=== PATIENT | male | born 1955 | race Caucasian/White ===

== ENCOUNTER 2022-01-08 11:10 | Observation (INO) ==
[2022-01-08] MEDS ORDERED: ONDANSETRON INJ 2 MG/ML 2 ML VIAL IV STA (11:22)
[2022-01-08] MEDS ORDERED: SODIUM CHLORIDE 0.9% 1000ML 2,000 ML IV SCH (11:30)
--- NOTE | 2022-01-08 11:30 | Emergency Department Note ---
History of Present Illness General Chief complaint: Syncope Time Seen by Provider: 01/08/22 11:16 Source: patient and EMS History of Present Illness 66-[facility]-old [facility] speech and physical therapy today and had episodes of syncope. Reportedly he has been evaluated in the past for syncope [id number] in their notes they state that 2 days ago he had 4 syncopal episodes in which he closes his eyes and then his eyes rolled back. Patient denies headache slurred speech blurred vision currently patient states that he does feel nauseated. Patient denies chest pain abdominal pain; there are no other mitigating or alleviating factors. Patient recently had a CVA as well is being treated for back pain. Patient denies bloody stools denies diarrhea Past Med/Surg History Social History Smoking Status: Former smoker Tobacco Type: Cigarettes Feels Safe at Home: Yes Immunizations: Past medical history CVA, syncope, back problems; reviewed in the chart that was brought in by EMS by me Review of Systems A total of 10 systems reviewed and were otherwise negative Constitutional: no fever Ear, Nose, Mouth, Throat: no ear pain Cardiovascular: no chest pain Gastrointestinal: + nausea; no abdominal pain Neurologic: + falls and + syncope Physical Exam Vital Signs Vital Signs - 24 hr 01/08/22 11:28 Temperature 36.5 C Temperature Source Oral Pulse Rate 62 Pulse Rhythm Regular Respiratory Rate 20 Blood Pressure 149/84 H Blood Pressure Mean 105 Pulse Oximetry 97 Oxygen Delivery Method Room Air Sepsis Recent Fever Within 48 Hours No Sepsis New/Unexplained Change in Mental Status N/A Sepsis Action Taken by Nursing No Action Required VITAL SIGNS - Vital signs and nursing notes were reviewed. GENERAL -66-year-old male appearing his stated age who is in no acute distress. Communicates well with provider and answers questions appropriately. SKIN - Without rashes. HEAD - NC/AT. EYES - PERRL with EOMI bilaterally. Sclera anicteric. Palpebral conjunctiva pink and moist with no injection noted. EARS - No deformities of external structures noted on gross examination bilaterally. No pain elicited with palpation of the tragus bilaterally. External auditory canals without discharge or otorrhea. NOSE - Midline and without cyanosis. No epistaxis or purulent drainage noted. Septum midline without deviation or septal hematoma noted. MOUTH/OROPHARYNX - Without perioral cyanosis. Buccal mucosa pink and moist ; Tongue midline with equal elevation of palate bilaterally. No tonsillar hypertrophy, erythema, or exudates noted. NECK - Neck with FROM. Supple to palpation. No nuchal rigidity. LUNGS - Chest wall symmetric without accessory muscle use, intercostals retractions, or central cyanosis. Normal vesicular breath sounds CTA B/L. No wheezes, rales, or rhonchi appreciated. CARDIAC - RRR with S1/S2. No murmur, rubs, or gallops appreciated. ABDOMEN - Abdominal contour soft without pulsations or visible masses. BS normoactive all four quadrants. No tenderness, palpable masses, hepatosplenomegaly, or ascites noted. EXTREMITIES - No clubbing or peripheral cyanosis. No pretibial edema present. +5/5 strength noted in UE/LE bilaterally. NEUROLOGIC - Cranial nerves II through XII grossly intact. Sensory intact to light touch throughout. NIH 0; GCS 15 PSYCH - A&Ox3 and cooperates fully with examiner. Pt is very pleasant and int eracts well with examiner. Course Reevaluation(s) Reevaluation #1: Examination of the patient at 12:15 PM he is resting in no distress nonfocal neurologically no seizure activity no cardiac dysrhythmia noticed on monitor. The case was discussed with the hospitalist from [facility] for admission, Dr Romo Administered Medications Sodium Chloride (Nss 1000ml) 2,000 mls @ 999 mls/hr IV .Q2H1M NOEL Stop: 01/08/22 13:30 Last Admin: 01/08/22 12:02 Dose: 999 mls/hr Documented by: [id number] Discontinued Medications Ondansetron HCl (Ondansetron Inj 2 Mg/Ml 2 Ml Vial) 4 mg IV NOW STA Stop: 01/08/22 11:23 Last Admin: 01/08/22 12:02 Dose: 4 mg Documented by: [id number] Medical Decision Making Medical Records Attestation: I reviewed the patient's medical records. Home Medications Current Medication List: was personally reviewed by me Laboratory Data Attestation: I reviewed the patient's lab results. Result diagrams: 01/08/22 11:23 01/08/22 11:23 Lab Results 01/08/22 01/08/22 01/08/22 Range/Units 11:23 11:23 11:23 WBC 9.21 (4.8-10.8) K/uL RBC 4.02 L (4.7-6.1) M/uL Hgb 13.4 L (14.0-18.0) g/dL Hct 39.4 L (42-52) % MCV 98.0 (80-100) fL MCH 33.3 (25-34) pg MCHC 34.0 (32-36) g/dL RDW Std Deviation 44.7 (36.4-46.3) fL RDW Coeff of Laney 12.4 (11.5-14.5) % Plt Count 705 H (130-400) K/uL MPV 9.7 (7.4-10.4) fL Immature Gran % (Auto) 0.7 % Neut % (Auto) 57.7 % Lymph % (Auto) 26.1 % [place]igo % (Auto) 12.7 % Eos % (Auto) 2.0 % Baso % (Auto) 0.8 % Neut # (Auto) 5.33 (1.4-6.5) K/uL Lymph # (Auto) 2.40 (1.2-3.4) K/uL [place]igo # (Auto) 1.17 H (0.11-0.59) K/uL Eos # (Auto) 0.18 (0-0.5) K/uL Baso # (Auto) 0.07 (0-0.2) K/uL Immature Gran # (Auto) 0.06 H (0.00-0.02) K/uL PT 10.8 (9.0-12.0) Seconds INR 1.0 (0.9-1.1) Sodium 134 L (136-145) mmol/L Potassium 3.1 L (3.5-5.1) mmol/L Chloride 95 L (98-107) mmol/L Carbon Dioxide 27 (21-32) mmol/L Anion Gap 12 H (3-11) BUN 27 H (6-23) mg/dl Creatinine 1.04 (0.6-1.4) mg/dl Est Cr Clr Drug Dosing 101.0 ml/min Est GFR ( Amer) 86.9 ml/min Est GFR (Non-Af Amer) 75.0 ml/min BUN/Creatinine Ratio 26.0 H (10-20) Glucose 200 H (70-99(Fasting)) mg/dl Calcium 9.5 (8.5-10.1) mg/dl Magnesium 2.3 (1.7-2.4) mg/dl Total Bilirubin 0.8 (0.2-1.0) mg/dl AST 27 (13-39) U/L ALT 17 (7-52) U/L Alkaline Phosphatase 102 (34-104) U/L Troponin I High Sens 11.8 (0-20) pg/ml Total Protein 8.3 (6.0-8.3) gm/dl Albumin 4.0 (3.4-5.0) gm/dl Globulin 4.3 H (2.5-4.0) gm/dl Albumin/Globulin Ratio 0.9 (0.9-2) TSH (0.300-4.500) uIu/ml Urine Color Urine Appearance (Clear) Urine pH (4.5-7.5) Ur Specific [place] (1.000-1.030) Urine Protein (Negative) Urine Glucose (UA) (Negative) Urine Ketones (Negative) Urine Blood (Negative) Urine Nitrite (Negative) Urine Bilirubin (Negative) Urine Urobilinogen (Negative) Ur Leukocyte Esterase (Negative) 01/08/22 01/08/22 Range/Units 11:23 11:50 WBC (4.8-10.8) K/uL RBC (4.7-6.1) M/uL Hgb (14.0-18.0) g/dL Hct (42-52) % MCV (80-100) fL MCH (25-34) pg MCHC (32-36) g/dL RDW Std Deviation (36.4-46.3) fL RDW Coeff of Laney (11.5-14.5) % Plt Count (130-400) K/uL MPV (7.4-10.4) fL Immature Gran % (Auto) % Neut % (Auto) % Lymph % (Auto) % Vigo % (Auto) % Eos % (Auto) % Baso % (Auto) % Neut # (Auto) (1.4-6.5) K/uL Lymph # (Auto) (1.2-3.4) K/uL [place] # (Auto) (0.11-0.59) K/uL Eos # (Auto) (0-0.5) K/uL Baso # (Auto) (0-0.2) K/uL Immature Gran # (Auto) (0.00-0.02) K/uL PT (9.0-12.0) Seconds INR (0.9-1.1) Sodium (136-145) mmol/L Potassium (3.5-5.1) mmol/L Chloride (98-107) mmol/L Carbon Dioxide (21-32) mmol/L Anion Gap (3-11) BUN (6-23) mg/dl Creatinine (0.6-1.4) mg/dl Est Cr Clr Drug Dosing ml/min Est GFR ( Amer) ml/min Est GFR (Non-Af Amer) ml/min BUN/Creatinine Ratio (10-20) Glucose (70-99(Fasting)) mg/dl Calcium (8.5-10.1) mg/dl Magnesium (1.7-2.4) mg/dl Total Bilirubin (0.2-1.0) mg/dl AST (13-39) U/L ALT (7-52) U/L Alkaline Phosphatase (34-104) U/L Troponin I High Sens (0-20) pg/ml Total Protein (6.0-8.3) gm/dl Albumin (3.4-5.0) gm/dl Globulin (2.5-4.0) gm/dl Albumin/Globulin Ratio (0.9-2) TSH 2.054 (0.300-4.500) uIu/ml Urine Color Yellow Urine Appearance Clear (Clear) Urine pH 5.0 (4.5-7.5) Ur Specific [place] 1.013 (1.000-1.030) Urine Protein Negative (Negative) Urine Glucose (UA) 3+ H (Negative) Urine Ketones Negative (Negative) Urine Blood Negative (Negative) Urine Nitrite Negative (Negative) Urine Bilirubin Negative (Negative) Urine Urobilinogen Negative (Negative) Ur Leukocyte Esterase 2+ H (Negative) Imaging Data Radiologist's Impression: Head CT 01/08/22 11:23 CT SCAN OF THE BRAIN WITHOUT IV CONTRAST CLINICAL HISTORY: Syncope. COMPARISON STUDY: No priors. TECHNIQUE: Unenhanced axial CT scan of the brain is performed from the vertex to the skull base. A dose lowering technique was utilized adhering to the principles of ALARA. CT DOSE: 614.27 mGy.cm FINDINGS: Brain parenchyma: There are age-related involutional changes noting mild subcortical and periventricular microangiopathic change. There is no hemorrhage, mass effect, or evidence of acute territorial ischemia by CT criteria. There are small chronic lacunar infarcts in both cerebral hemispheres as well as both thalami. Hein-white matter differentiation is preserved. No extra-axial fluid collection is seen. Ventricles, sulci, cisterns: Prominent secondary to involutional change. Intracranial vasculature: There is atherosclerotic calcification of the cavernous carotid arteries. Calvarium: Unremarkable. Sinuses and mastoids: There is complete opacification of the right sphenoid sinus. The remaining paranasal sinuses are clear. The mastoid air cells are well pneumatized. Orbits: The bony orbits are grossly intact. There are bilateral ocular lens implants. IMPRESSION: There is no hemorrhage, mass effect, or evidence of acute territorial ischemia by CT criteria. ACT 112: Negative or not required by law. Electronically signed by: Bhavesh Santana M.D. 01/08/2022 11:52 AM [facility] Narrative Medical decision making differential diagnosis includes syncope, near syncope, seizure, metabolic derangement, arrhythmia, anxiety; plan is to check labs, EKG, CT Impression & Plan Syncope, Acute hypokalemia Discharge Plan Visit Data Chief Complaint: Syncope ED Provider: Zach Arceo Discharge Problem: Syncope, Acute hypokalemia Patient Disposition: Being Evaluated by Hospitalist Forms Stand Alone Forms: My [facility] Referrals Referrals: PCP,NO [Primary Care Provider] -
[2022-01-08 11:36] LABS: Basophils # (auto) 0.07 K/uL (0-0.2); Basophils % (auto) 0.8 %; Eosinophils # (auto) 0.18 K/uL (0-0.5); Hematocrit (blood only) 39.4 % (42-52); Hemoglobin 13.4 g/dL (14.0-18.0); Immature Granulocytes # (auto) 0.06 K/uL (0.00-0.02); Immature Granulocytes % (auto) 0.7 %; Lymphocytes % (auto) 26.1 %; Mean Corpuscular Hemoglobin 33.3 pg (25-34); Mean Platelet Volume 9.7 fL (7.4-10.4); Monocytes # (auto) 1.17 K/uL (0.11-0.59); Monocytes % (auto) 12.7 %; Neutrophils # (auto) 5.33 K/uL (1.4-6.5); Neutrophils % (auto) 57.7 %; Platelet Count 705 K/uL (130-400); RDW Coefficient of Variation 12.4 % (11.5-14.5); RDW Standard Deviation 44.7 fL (36.4-46.3); Red Blood Count 4.02 M/uL (4.7-6.1); White Blood Count 9.21 K/uL (4.8-10.8)
[2022-01-08 11:47] LABS: Prothrombin Time 10.8 Seconds (9.0-12.0)
--- NOTE | 2022-01-08 11:54 | CT Scan Report ---
CT SCAN OF THE BRAIN WITHOUT IV CONTRAST CLINICAL HISTORY: Syncope. COMPARISON STUDY: No priors. TECHNIQUE: Unenhanced axial CT scan of the brain is performed from the vertex to the skull base. A do se lowering technique was utilized adhering to the principles of ALARA. CT DOSE: 614.27 mGy.cm FINDINGS: Brain parenchyma: There are age-related involutional changes noting mild subcortical and periventric ular microangiopathic change. There is no hemorrhage, mass effect, or evidence of acute territorial i schemia by CT criteria. There are small chronic lacunar infarcts in both cerebral hemispheres as well as both thalami. Hein-white matter differentiation is preserved. No extra-axial fluid collection is seen. Ventricles, sulci, cisterns: Prominent secondary to involutional change. Intracranial vasculature: There is atherosclerotic calcification of the cavernous carotid arteries. Calvarium: Unremarkable. Sinuses and mastoids: There is complete opacification of the right sphenoid sinus. The remaining para nasal sinuses are clear. The mastoid air cells are well pneumatized. Orbits: The bony orbits are grossly intact. There are bilateral ocular lens implants. IMPRESSION: There is no hemorrhage, mass effect, or evidence of acute territorial ischemia by CT beatrice frey. ACT 112: Negative or not required by law. Electronically signed by: Bhavesh Santana M.D. 01/08/2022 11:52 AM
[2022-01-08 11:56] LABS: Albumin Globulin Ratio 0.9 (0.9-2); Bilirubin,Total 0.8 mg/dl (0.2-1.0); Calcium 9.5 mg/dl (8.5-10.1); Est GFR (African American) 86.9 ml/min; Globulin 4.3 gm/dl (2.5-4.0); Magnesium 2.3 mg/dl (1.7-2.4); Potassium 3.1 mmol/L (3.5-5.1); Total Protein 8.3 gm/dl (6.0-8.3)
[2022-01-08 12:01] LABS: Troponin I High Sensitivity 11.8 pg/ml (0-20)
[2022-01-08] MEDS ORDERED: POTASSIUM CHLORIDE 10 MEQ TABCR PO STA (12:04)
[2022-01-08 12:13] LABS: Appearance Urine Clear (Clear); Bacteria Urine Automated 1+ (Negative); Bilirubin Urine Negative (Negative); Blood Urine Negative (Negative); Color Urine Yellow; Glucose Urine UA 3+ (Negative); Ketones Urine Negative (Negative); Leukocyte Esterase Urine 2+ (Negative); Nitrite Urine Negative (Negative); Protein Urine Negative (Negative); RBC Urine Automated 0-4 /hpf (0-4); Specific Gravity Urine 1.013 (1.000-1.030); Urobilinogen Urine Negative (Negative); WBC Urine Automated >30 /hpf (0-5)
--- NOTE | 2022-01-08 12:22 | History & Physical Report ---
Date of Service January 08, 2022 Assessment & Plan (1) Syncope: Plan: Patient was at [facility] for rehab following a fall. Had 4 episodes of loss of consciousness while in the rehab gym. First episode occurred while sitting in a wheelchair doing exercises with speech therapy that required breath-holding, lost consciousness for 30 seconds and was immediately oriented and moving all extremities afterwards. No chest pain or chest pressure. Did have some slight nausea. O2 sat was normal, pulse remained in the 60s and regular. Patient had 3 additional episodes which was witnessed by staff physician and PA. Patient be laying in bed and then would close eyes and drift off for several seconds. At this time EKG showed a sinus rhythm with a rate in the 60s, no ST changes. No pauses or bradycardia during observed loss of consciousness. Patient was referred to the ED for additional evaluation. Syncope Low suspicion for cardiogenic as patient had multiple observed episodes by [facility] provider and PA while connected to an EKG which showed sinus rhythm without pauses or bradycardia CThead: There is no hemorrhage, mass effect, or evidence of acute territorial ischemia by CT criteria. There are small chronic lacunar infarcts in both c erebral hemispheres as well as both thalami. Hein-white matter differentiation is preserved. No extra-axial fluid collection is seen. -UA 2+ leukocyte esterase, 1+ bacteria, yeast, patient reports has had a Cast recently placed after prostate cancer with radiation was completed. UC pending, empirically treated with Rocephin on admission Glucose 200 on admission, no reported hypoglycemia Potassium 3.1, repleted. Goal potassium 4, magnesium 2.0 Mild hyponatremia to 134 No leukocytosis Hemoglobin 13.4 Admitting EKG sinus without ST territorial changes/signs of ischemia, without A. fib Patient does have a loop recorder followed by Dr. Soco Umanzor cardiology following his A. fib episodes. Attempt to obtain record of this, although low suspicion this will be helpful given observed episodes while hooked up to EKG machine as noted above TTE pending Carotid Dopplers pending No tongue biting, incontinence, or post episode weakness/Raffaele's paralysis suggestive of seizure. For EEG at this time blood pressure was normal during episodes observed at rehab. 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 11 units Lantus twice daily. SSI Goal BSG 1001 40 Pharmacy glycemic consult placed due to history of variable blood sugars in the setting of syncope (8) History of ischemic stroke: Plan: Continue Praluent Continue Plavix 75 mg daily Continue gemfibrozil 600 mg p.o. twice daily (9) Afib: Plan: Sinus rhythm at time of assessment Patient reports is on Eliquis, this was not documented in med list on reconciliation Continue atenolol 25 mg p.o. daily Message left with [facility] cardiology group for call back unclear why Eliquis was stopped by time patient was referred [facility] but by history sounds like may have been concern for strokes with recurrent falls and high bleeding risk. Per patient no history of hemorrhagic conversion of any strokes. At admission patient is in sinus rhythm, will continue with DVT prophylaxis and attempt to obtain further records (10) Anxiety and depression: Plan: In addition to bipolar, patient unsure if type I or type II. Sees Dr. Kathy Umanzor Psychiatry. Continue PATENT PROSECUTION ATTORNEY alprazolam 0.5 mg p.o. AM/at bedtime Continue amitriptyline 100 mg p.o. at bedtime Continue bupropion 200 mg p.o. twice daily Continue venlafaxine 150 mg p.o. twice daily Continue ziprasidone 40 mg p.o. twice daily Patient on several medications which could contribute to altered mental status. Given otherwise unremarkable cardiac evaluation will consult psychiatry for medication adjustment recommendations if any. Unable to reach patient's home psychiatrist by phone, holiday Tuesday. 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 daily Echo pending above, patient unsure of his heart pumping but has noted intermittent swelling in his legs in the past Continue antiplatelet, beta-drea as above Continue losartan 100 mg p.o. daily, hydrochlorothiazide 25 mg p.o. daily (12) Bipolar disorder: Plan: Unclear if type I or type II per patient, see anxiety/depression above History of Present Illness Primary Care Provider: NO PCP Darrin is a 66-year-old male hx Afib, DM, stroke who presents from [facility] rehab with recurrent syncopal episodes. Per Provider Record Review: Patient was at [facility] for rehab following a fall. Had 4 episodes of loss of consciousness while in the rehab gym. First episode occurred while sitting in a wheelchair doing exercises with speech therapy that required breath-holding, lost consciousness for 30 seconds and was immediately oriented and moving all extremities afterwards. No chest pain or chest pressure. Did have some slight nausea. O2 sat was normal, pulse remained in the 60s and regular. Patient had 3 additional episodes which was witnessed by staff physician and PA. Patient be laying in bed and then would close eyes and drift off for several seconds. At this time EKG showed a sinus rhythm with a rate in the 60s, no ST changes. No pauses or bradycardia during observed loss of consciousness. Patient was referred to the ED for additional evaluation. Per Pt: Got to [facility] this past (2 days ago). Was doing speech therapy and passed out. "It's normal, I've been passing out since I first got sick in 1995". Reports he is usually at home sitting in his chair and wakes up. He does not know when he is going to pass out, no prodome, no lightheadedness/dizziness. When he wakes up he notes he feels confused for a few minutes. Lately his R side is weaker than the left. Had a TIA 2 months ago, had a 'full stroke' in . Was at [facility] after a fall. Reports very poor balance and fell down his stairs at home and was seen after a fall and recommended for rehab at [facility]. No strokes in the last 2 month sot his knowledge. Baseline R arm and Leg weakness, some speech dysarthria at baseline. Poor balance/gait at baseline, has had more falls and feel this is due to balance. No spinning/vertigo, but 'just can't get steady.' Reports a seizure 'a long time ago at the start of my weakness, we don't know if it was related to a stroke. Neurologist thought it was a stroke, regular doctor thought it was a seizure.' No seizure meds, no recent seizures. No vision change, but has had 2 cataracts removed with improvement in the past. No chest pain. Endorses rare chest pressure, none this week Endorses some intermittent shortness of breath with exertion improved with BiPAP at night which he started eysterday. No SoB at time of assessment. Stress test of his heart [address] Dena Smallwood at [place] --> was not recommended for cath at that time Afib, diagnosed5 months ago. Takes eliquis. Plavix. Thinks he has gotten heparin shots in the belly before. Meds: Jardiance, gliperide, olempic weekly insulin (last took today), flomax, vitamin D, Harjovy HIV. Had since 1995, undetectable. Demedex, multivitamin. Atenolol. Medical History: Reviewed Medications: Reviewed Surgical History: Reviewed Allergies: Reviewed Social History: Denies current tobacco, etoh, substance use. Former cigarette use Code Status: Full Allergies Allergy/AdvReac Type Severity Reaction Status Date / Time clonazepam [From Klonopin] Allergy Unknown ON Verified 01/08/22 12:37 [facility] Fish Containing Products Allergy Unknown ON Verified 01/08/22 12:37 [facility] mirtazapine [From Remeron] Allergy Unknown ON Verified 01/08/22 12:37 [facility] Penicillins Allergy Unknown ON Verified 01/08/22 12:37 [facility] Sulfa (Sulfonamide Allergy Unknown ON Verified 01/08/22 12:37 Antibiotics) [facility] Home Medications Medication Instructions Recorded Confirmed Type acetaminophen 325 mg tablet 650 mg PO Q4H PRN 01/08/22 01/08/22 History (Tylenol) alirocumab 150 mg/mL subcutaneous 150 mg SUBCUT .Q2WK 01/08/22 01/08/22 History pen injector (Praluent Pen) lcpun-a-emiphnuyiuctx 150 unit 150 unit PO HS 01/08/22 01/08/22 History tablet alprazolam 0.5 mg tablet 0.5 mg PO AMHS 01/08/22 01/08/22 History amitriptyline 25 mg tablet 100 mg PO HS 01/08/22 01/08/22 History atenolol 25 mg tablet 25 mg PO DAILY 01/08/22 01/08/22 History bictegravir 50 mg-emtricitabine 1 tab PO QPM 01/08/22 01/08/22 History 200 mg-tenofovir alafenam 25 mg tablet (Biktarvy) bisacodyl 10 mg rectal suppository 10 mg WI DAILY PRN 01/08/22 01/08/22 History bupropion HCl 200 mg tablet,12 hr 200 mg PO BID 01/08/22 01/08/22 History sustained-release cholecalciferol (vitamin D3) 50 50 mcg PO DAILY 01/08/22 01/08/22 History mcg (2,000 unit) capsule (Vitamin D3) clopidogrel 75 mg tablet (Plavix) 75 mg PO DAILY 01/08/22 01/08/22 History docusate sodium 100 mg capsule 100 mg PO BID 01/08/22 01/08/22 History empagliflozin 25 mg tablet 25 mg PO DAILY 01/08/22 01/08/22 History (Jardiance) gemfibrozil 600 mg tablet 600 mg PO BID 01/08/22 01/08/22 History glimepiride 4 mg tablet 4 mg PO BIDM 01/08/22 01/08/22 History heparin (bovine) 5,000 unit/mL 5,000 unit Q8H 01/08/22 01/08/22 History injection solution hydrochlorothiazide 25 mg tablet 25 mg PO DAILY 01/08/22 01/08/22 History insulin regular human 100 unit/mL 1 sliding scale dose SUBCUT ACHS 01/08/22 01/08/22 History injection solution (Humulin R Regular U-100 Insulin) losartan 100 mg tablet 100 mg PO DAILY 01/08/22 01/08/22 History magnesium hydroxide 400 mg/5 mL 30 ml PO DAILY PRN 01/08/22 01/08/22 History oral suspension (Milk of Magnesia) multivitamin with minerals 1 tab PO DAILY 01/08/22 01/08/22 History nitrofurantoin 100 mg PO BID 01/08/22 01/08/22 History monohydrate/macrocrystals 100 mg capsule (Macrobid) nitroglycerin 0.4 mg sublingual 0.4 mg SUBLINGUAL DIRECTED PRN 01/08/22 01/08/22 History tablet (Nitrostat) ondansetron HCl 4 mg tablet 4 mg PO Q6H PRN 01/08/22 01/08/22 History pantoprazole 40 mg tablet,delayed 40 mg PO DAILYBB 01/08/22 01/08/22 History release polyethylene glycol 3350 17 17 g PO QDL PRN 01/08/22 01/08/22 History gram/dose oral powder (Miralax) potassium chloride 20 mEq 20 meq PO DAILY 01/08/22 01/08/22 History tablet,extended release semaglutide 1 mg/dose (4 mg/3 mL) 1 mg SUBCUT WK 01/08/22 01/08/22 History subcutaneous pen injector (Ozempic) sennosides 8.6 mg-docusate sodium 1 tab-cap PO QDL PRN 01/08/22 01/08/22 History 50 mg tablet (Senokot-S) sodium phosphates 19 gram-7 118 ml WI DAILY PRN 01/08/22 01/08/22 History gram/118 mL enema (Fleet Enema) tamsulosin 0.4 mg capsule 0.4 mg PO BID 01/08/22 01/08/22 History torsemide 20 mg tablet 20 mg PO DAILY 01/08/22 01/08/22 History venlafaxine 150 mg 150 mg PO BID 01/08/22 01/08/22 History capsule,extended release 24 hr (Effexor XR) ziprasidone HCl 20 mg capsule 40 mg PO BID 01/08/22 01/08/22 History Past Med/Surg History Medical History Afib Castleman disease Compression fracture Diabetes mellitus type 2 in obese Emphysema of lung Gout History of ischemic stroke HIV (human immunodeficiency virus infection) Lower urinary tract symptoms (LUTS) Myopathy Prostate cancer Surgical History H/O splenectomy History of tonsillectomy Hx of cholecystectomy Social History Smoking Status: Former smoker Tobacco Type: Cigarettes Feels Safe at Home: Yes Review of Systems Review of Systems: All systems reviewed & are unremarkable except as noted in Subjective Physical Exam Physical Exam: General: A&Ox3. NAD. Cooperative. HEENT: Atraumatic, normocephalic. Vision and hearing grossly intact. Pupils equal and reactive to light and accommodation. No nystagmus on lateral gaze. No saccades. Pulm: CTAB A&P. -wheezes, -rales, -rhonchi. Symmetrical chest rise. No increase in work of breathing. No respiratory distress. Cardiac: RRR, -mrg. Radial pulses intact and symmetrical. No bruits are appreciated on carotid auscultation. Abdominal: Obese, nontender, nondistended, soft. BS present. 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 Right cement truck loader strength, elbow flexion/extension, shoulder flexion/extension 4 -/5, hip flexion 4 -/5, ankle dorsiflexion/plantarflexion 4 -/5. Sensation intact to soft touch in the hands and feet bilaterally, qualitatively diminished on the right compared to left per patient. Radial and PT pulses intact bilaterally. Right leg circumference approximately 1.5-2 cm larger than the left measured at the calf, patient is unsure if this is normal thinks the right is normally a little bit larger than the left. Results & Data Results & Data ([facility]) Vital Signs (Past 12 Hours) Vital Signs Temp Pulse Resp BP Pulse Ox 01/08/22 11:28 36.5 C 62 20 149/84 H 97 PG Care Time/CCT Total # of Minutes Spent Total Time Spent with Patient: Total time spent is greater than 50% in coordination of care (as documented) at patient's floor/unit and/or counseling patient: Coding Level of Care Code INT OBSERVATION CARE 70M LVL 3 Diagnoses Syncope R55 Syncope type: unspecified Acute hypokalemia E87.6 Lower urinary tract symptoms (LUTS) R39.9 Myopathy G72.9 Prostate cancer C61 HIV (human immunodeficiency virus infection) B20 Diabetes mellitus type 2 in obese E11.69; E66.9 History of ischemic stroke Z86.73 Afib I48.91 Anxiety and depression F41.9; F32.A CAD (coronary artery disease) I25.10 Bipolar disorder F31.9 (1) Syncope Syncope type: unspecified Qualified Code(s): R55 - Syncope and collapse
--- NOTE | 2022-01-08 15:33 | Ultrasound Report ---
US venous doppler LE RT HISTORY: 66 years-old Male RLE increased leg circumference acute pain and swelling of the right lowe r leg COMPARISON: None TECHNIQUE: Multiple real-time sonographic images of the right lower extremity deep venous structures were obtained assessing grayscale appearance, color and spectral flow. FINDINGS: Normal flow, compressibility, phasicity and augmentation. IMPRESSION: No sonographic evidence of deep venous thrombosis. ACT 112: Negative or not required by law. The above report was generated using voice recognition software. It may contain grammatical, syntax o r spelling errors. Electronically signed by: Tony Mendieta M.D. 01/08/2022 3:32 PM
[2022-01-08] MEDS ORDERED: CARBOHYDRATES FOR HYPOGLYCEMIA PO PRN (16:15)
[2022-01-08] MEDS ORDERED: GLUCAGON FOR INJ 1 MG VIAL SQ PRN (16:15)
[2022-01-08] MEDS ORDERED: ONDANSETRON INJ 2 MG/ML 2 ML VIAL IV PRN (16:15)
[2022-01-08] MEDS ORDERED: PHARMACY GLYCEMIC MGMT CONSULT PRN (16:15)
[2022-01-08] MEDS ORDERED: GLUCOSE 10 TABS/TUBE PO PRN (16:15)
[2022-01-08] MEDS ORDERED: DEXTROSE 50% 50 ML SYRINGE IV PRN (16:15)
[2022-01-08] MEDS ORDERED: SOD PHOSPHATE/SOD BIPHOSPHATE ENEMA 132 ML BTL PR PRN (16:15)
[2022-01-08] MEDS ORDERED: GLUCOSE 40% GEL 15 GM TUBE PO PRN (16:15)
[2022-01-08] MEDS ORDERED: POLYETHYLENE (MIRALAX) 17 GM PACK PO PRN (16:15)
[2022-01-08] MEDS: gemfibroziL 600 MG TAB PO SCH (17:52)
[2022-01-08] MEDS: ACETAMINOPHEN 325 MG TAB PO PRN (18:46)
[2022-01-08] MEDS: INSULIN ASPART PER UNIT SC SCH ×2 (18:46→21:29)
[2022-01-08] MEDS ORDERED: INSULIN GLARGINE SOLOSTAR 100 UNITS/ML 3 ML PEN SC SCH ×2 (21:00)
[2022-01-08] MEDS: VENLAFAXINE HCL XR 150 MG CAPXR PO SCH (21:27)
[2022-01-08] MEDS: DOCUSATE SODIUM 100 MG CAP PO SCH (21:27)
[2022-01-08] MEDS: TAMSULOSIN HCL 0.4 MG CAP PO SCH (21:27)
[2022-01-08] MEDS: NITROFURANTOIN MONOHYDRATE 100 MG CAP PO SCH (21:27)
[2022-01-08] MEDS: buPROPion SR 100 MG TABCR PO SCH (21:27)
[2022-01-08] MEDS: AMITRIPTYLINE HCL 100 MG TAB PO SCH (21:29)
--- NOTE | 2022-01-08 21:38 | Ultrasound Report ---
US carotid doppler BI CLINICAL HISTORY: 66 years-old Male with syncope, hx stroke/tia. Acute strokelike symptoms COMPARISON: Head CT of same day TECHNIQUE: Multiple real time sonographic images of the carotid bifurcations were obtained assessing carreon scale, color Doppler and spectral wave form appearance FINDINGS: RIGHT CAROTID: The peak systolic velocity measured within the right ICA is75 cm/sec. The end diasto lic velocity measured 23 cm/sec. The ICA to CCA ratio measured 1.3 which correlates with a stenosis of 0-50%. Mild atherosclerotic plaque of the right carotid bulb. LEFT CAROTID: The peak systolic velocity measured within the left ICA is74 cm/sec. The end diastoli c velocity measured 24 cm/sec. The ICA to CCA ratio measured 1.0 which correlates with a stenosis of 0-50%. Mild to moderate atherosclerotic plaque of the left carotid bulb. There is normal antegrade vertebral flow bilaterally. IMPRESSION: 1. Atherosclerosis without hemodynamically significant stenosis. 2. Normal antegrade vertebral flow bilaterally. ACT 112: Negative or not required by law. The above report was generated using voice recognition software. It may contain grammatical, syntax o r spelling errors. Electronically signed by: Tony Mendieta M.D. 01/08/2022 9:35 PM
[2022-01-08] MEDS: ALPRAZolam 0.5 MG TABLET PO SCH (21:56)
[2022-01-08] MEDS: HEPARIN SOD 5,000 UNIT/0.5 ML VIAL SQ SCH (22:00)
[2022-01-09] MEDS: PANTOprazole 40 MG TAB PO SCH (06:07)
[2022-01-09] MEDS: HEPARIN SOD 5,000 UNIT/0.5 ML VIAL SQ SCH ×3 (06:07→20:42)
--- NOTE | 2022-01-09 06:51 | Electrocardiogram Report ---
Test Reason : Blood Pressure : / mmHG Vent. Rate : 057 BPM Atrial Rate : 057 BPM P-R Int : 224 ms QRS Dur : 090 ms QT Int : 520 ms P-R-T Axes : 049 025 075 degrees QTc Int : 506 ms Poor data quality, interpretation may be adversely affected Sinus bradycardia with 1st degree A-V block Nonspecific ST and T wave abnormality Prolonged QT Abnormal ECG No previous ECGs available Confirmed by Solomon Gaspar ([id number]) on 01/09/2022 6:50:44 AM Referred By: Confirmed By:Solomon Gaspar
[2022-01-09 07:02] LABS: Basophils # (auto) 0.07 K/uL (0-0.2); Basophils % (auto) 0.8 %; Eosinophils # (auto) 0.28 K/uL (0-0.5); Eosinophils % (auto) 3.2 %; Hematocrit (blood only) 38.1 % (42-52); Hemoglobin 12.9 g/dL (14.0-18.0); Immature Granulocytes # (auto) 0.04 K/uL (0.00-0.02); Immature Granulocytes % (auto) 0.5 %; Lymphocytes # (auto) 2.69 K/uL (1.2-3.4); Lymphocytes % (auto) 30.5 %; Mean Corpuscular Hemoglobin 33.2 pg (25-34); Mean Corpuscular Hgb Conc 33.9 g/dL (32-36); Mean Corpuscular Volume 97.9 fL (80-100); Mean Platelet Volume 9.4 fL (7.4-10.4); Monocytes # (auto) 1.16 K/uL (0.11-0.59); Monocytes % (auto) 13.2 %; Neutrophils # (auto) 4.58 K/uL (1.4-6.5); Neutrophils % (auto) 51.8 %; Platelet Count 675 K/uL (130-400); RDW Coefficient of Variation 12.4 % (11.5-14.5); RDW Standard Deviation 44.4 fL (36.4-46.3); Red Blood Count 3.89 M/uL (4.7-6.1); White Blood Count 8.82 K/uL (4.8-10.8)
[2022-01-09 07:33] LABS: Calcium 9.2 mg/dl (8.5-10.1); Creatinine Clr Calc Pharmacy 130.2 ml/min; Est GFR (African American) 108.1 ml/min; Est GFR (Non-African American) 93.3 ml/min; Magnesium 2.1 mg/dl (1.7-2.4); Phosphorus 4.1 mg/dl (2.5-4.9); Potassium 3.3 mmol/L (3.5-5.1)
[2022-01-09] MEDS: INSULIN ASPART PER UNIT SC SCH ×4 (08:24→20:43)
[2022-01-09] MEDS: CLOPIDOGREL BISULFATE 75 MG TAB PO SCH (08:26)
[2022-01-09] MEDS: POTASSIUM CHLORIDE CRTAB 20 MEQ TABCR PO SCH (08:26)
[2022-01-09] MEDS: CHOLECALCIFEROL 1,000 UNITS 25 MCG TAB PO SCH (08:26)
[2022-01-09] MEDS: gemfibroziL 600 MG TAB PO SCH ×2 (08:26→17:00)
[2022-01-09] MEDS: buPROPion SR 100 MG TABCR PO SCH (08:27)
[2022-01-09] MEDS: NITROFURANTOIN MONOHYDRATE 100 MG CAP PO SCH ×2 (08:27→20:40)
[2022-01-09] MEDS: DOCUSATE SODIUM 100 MG CAP PO SCH ×2 (08:27→20:41)
[2022-01-09] MEDS: TAMSULOSIN HCL 0.4 MG CAP PO SCH ×2 (08:27→20:42)
[2022-01-09] MEDS: VENLAFAXINE HCL XR 150 MG CAPXR PO SCH (08:27)
[2022-01-09] MEDS: ALPRAZolam 0.5 MG TABLET PO SCH (08:31)
[2022-01-09] MEDS ORDERED: LOSARTAN POTASSIUM 50 MG TAB PO SCH (09:00)
[2022-01-09] MEDS ORDERED: ATENOLOL 25 MG TABLET PO SCH (09:00)
[2022-01-09 09:38] LABS: Estimated Average Glucose 160 mg/dl; Hemoglobin A1C 7.2 % (4.5-5.6)
--- NOTE | 2022-01-09 10:33 | Psychiatric Consultation ---
Date of Consultation January 09, 2022 Impression / Recommendations Impression 66 yo man with history of BPAD, depression, anxiety, prior psychiatric hospitalizations (last December 2020 at [facility]), TIA two months ago, afib, CAD and recent fall/balance issues admitted medically after episodes of LOC while at subacute rehab facility. Psychiatry was consulted for medication recommendations given extensive psychiatric medication regimen. Diagnostically unclear if episodes of unresponsiveness are related to psychiatric medications but given elevated QTc and known risks of benzos in adults over age 65 certainly could be contributing to recent falls and medical issues. Given elevated QTc risks of reducing medications are deemed worth it even though rapid taper can sometimes lead to rebound of depression. Geoffrey agrees with medication adjustments and has good outpatient psych supports should his mood worsen. Will keep geodone as is given importance for mood stabilization. Reducing Effexor and WEllbutrin. Transition and slightly taper Xanax to Ativan (dose equivalent would be 2 mg per day) as longer duration of effect may be more beneficial for anxiety and ideally he can tolerate lower dose and over time goal of taper to discontinuation as an outpatient. Risk of self-harm is low given denial of SI and no current prominent mood symptoms. Chronic risk is moderate given history of prior attempts, hospitalizations and of his spouse last year with some ongoing periods of grief. (1) Bipolar disorder: (2) Anxiety and depression: -c/w geodone 40mg BID -decrease venlafaxine ER to 150mg qd from BID -decreased Wellbutrin SR to 100mg qd from 200mg BID -discontinued xanax, start ativan 0.5 mg qAM and 1 mg qHS; recommend taper to discontinuation over time as outpatient -c/w elavil 100mg qhs -recommend repeat EKG to assess QTc in 1-3 days and frequent outpatient monitoring to ensure QTc reduces and remains stable (goal of <500) Risk Factors Assessment Do You Have Access To A Gun?: No Psych History Identifying Data 66 yo man with history of BPAD, depression, anxiety, prior psychiatric hospitalizations (last December 2020 at [facility]), TIA two months ago, afib, CAD and recent fall/balance issues admitted medically after episodes of LOC while at subacute rehab facility. Psychiatry was consulted for medication recommendations given extensive psychiatric medication regimen. Chief Complaint "I'm ok". History of Present Illness Geoffrey reports stable mood but does have a history of BPAD and has experienced maria dolores in the past (many years ago per his report). Most recently he was depressed with SI last December 2020 after the of his of 40 years. He has been on Geodone for many years and finds this very helpful for mood stabilization. Reviewed his other medications given concerns for episodes of LOC at rehab facility, falls/balance issues and elevated QTc. He agreed with reduction in dose of Wellbutrin and Effexor. He also agreed to transition from Xanax to Ativan for longer duration of effect, declined trying Klonopin as previously he found this made him tearful and "nasty" and thus the allergy indication (no hx anaphylactic rxn). Notes hx of panic attacks and high anxiety and feels unable to quickly taper off benzos at this time, reviewed risks given his age and potential this is contributing to balance issues/falls and possible episodes of decreased responsiveness.He takes elavil for neuropathy so not adjusting that for now. Reviewed importance of continuing to follow closely with his outpatient psychiatrist, unable to talk with him today or get records due to holiday weekend so will send information from my consult to Dr. Chavez which Bill agreed with and signed JOSAFAT for. Past Psychiatric History Current Psychiatric Diagnosis: BPAD, depression, anxiety Outpatient Services: therapist Fredis Mullins and psychiatrist León Chavez and has utilization management manager Vernell Woodard Previous Psych Admissions: multiple-last December 2020 Do You Have Access To A Gun?: No History of Previous Suicide Attempt: Yes (2 in 1995) Allergies Allergy/AdvReac Type Severity Reaction Status Date / Time clonazepam [From Klonopin] Allergy Unknown ON Verified 01/08/22 12:37 [facility] Fish Containing Products Allergy Unknown ON Verified 01/08/22 12:37 [facility] mirtazapine [From Remeron] Allergy Unknown ON Verified 01/08/22 12:37 [facility] Penicillins Allergy Unknown ON Verified 01/08/22 12:37 [facility] Sulfa (Sulfonamide Allergy Unknown ON Verified 01/08/22 12:37 Antibiotics) [facility] Home Medications Medication Instructions Recorded Confirmed Type acetaminophen 325 mg tablet 650 mg PO Q4H PRN 01/08/22 01/08/22 History (Tylenol) alirocumab 150 mg/mL subcutaneous 150 mg SUBCUT .Q2WK 01/08/22 01/08/22 History pen injector (Praluent Pen) [id number] 150 unit 150 unit PO HS 01/08/22 01/08/22 History tablet alprazolam 0.5 mg tablet 0.5 mg PO AMHS 01/08/22 01/08/22 History amitriptyline 25 mg tablet 100 mg PO HS 01/08/22 01/08/22 History atenolol 25 mg tablet 25 mg PO DAILY 01/08/22 01/08/22 History bictegravir 50 mg-emtricitabine 1 tab PO QPM 01/08/22 01/08/22 History 200 mg-tenofovir alafenam 25 mg tablet (Biktarvy) bisacodyl 10 mg rectal suppository 10 mg ME DAILY PRN 01/08/22 01/08/22 History bupropion HCl 200 mg tablet,12 hr 200 mg PO BID 01/08/22 01/08/22 History sustained-release cholecalciferol (vitamin D3) 50 50 mcg PO DAILY 01/08/22 01/08/22 History mcg (2,000 unit) capsule (Vitamin D3) clopidogrel 75 mg tablet (Plavix) 75 mg PO DAILY 01/08/22 01/08/22 History docusate sodium 100 mg capsule 100 mg PO BID 01/08/22 01/08/22 History empagliflozin 25 mg tablet 25 mg PO DAILY 01/08/22 01/08/22 History (Jardiance) gemfibrozil 600 mg tablet 600 mg PO BID 01/08/22 01/08/22 History glimepiride 4 mg tablet 4 mg PO BIDM 01/08/22 01/08/22 History heparin (bovine) 5,000 unit/mL 5,000 unit Q8H 01/08/22 01/08/22 History injection solution hydrochlorothiazide 25 mg tablet 25 mg PO DAILY 01/08/22 01/08/22 History insulin regular human 100 unit/mL 1 sliding scale dose SUBCUT ACHS 01/08/22 01/08/22 History injection solution (Humulin R Regular U-100 Insulin) losartan 100 mg tablet 100 mg PO DAILY 01/08/22 01/08/22 History magnesium hydroxide 400 mg/5 mL 30 ml PO DAILY PRN 01/08/22 01/08/22 History oral suspension (Milk of Magnesia) multivitamin with minerals 1 tab PO DAILY 01/08/22 01/08/22 History nitrofurantoin 100 mg PO BID 01/08/22 01/08/22 History monohydrate/macrocrystals 100 mg capsule (Macrobid) nitroglycerin 0.4 mg sublingual 0.4 mg SUBLINGUAL DIRECTED PRN 01/08/22 01/08/22 History tablet (Nitrostat) ondansetron HCl 4 mg tablet 4 mg PO Q6H PRN 01/08/22 01/08/22 History pantoprazole 40 mg tablet,delayed 40 mg PO DAILYBB 01/08/22 01/08/22 History release polyethylene glycol 3350 17 17 g PO QDL PRN 01/08/22 01/08/22 History gram/dose oral powder (Miralax) potassium chloride 20 mEq 20 meq PO DAILY 01/08/22 01/08/22 History tablet,extended release semaglutide 1 mg/dose (4 mg/3 mL) 1 mg SUBCUT WK 01/08/22 01/08/22 History subcutaneous pen injector (Ozempic) sennosides 8.6 mg-docusate sodium 1 tab-cap PO QDL PRN 01/08/22 01/08/22 History 50 mg tablet (Senokot-S) sodium phosphates 19 gram-7 118 ml ME DAILY PRN 01/08/22 01/08/22 History gram/118 mL enema (Fleet Enema) tamsulosin 0.4 mg capsule 0.4 mg PO BID 01/08/22 01/08/22 History torsemide 20 mg tablet 20 mg PO DAILY 01/08/22 01/08/22 History venlafaxine 150 mg 150 mg PO BID 01/08/22 01/08/22 History capsule,extended release 24 hr (Effexor XR) ziprasidone HCl 20 mg capsule 40 mg PO BID 01/08/22 01/08/22 History Family History one brother had suicide attempt Substance Abuse History denies Personal History Highest Grade Completed: High School Graduate Marital Status: Beliefs That Will Affect Care: None Patient History Medical History Afib Castleman disease Compression fracture Diabetes mellitus type 2 in obese Emphysema of lung Gout History of ischemic stroke HIV (human immunodeficiency virus infection) Lower urinary tract symptoms (LUTS) Myopathy Prostate cancer Surgical History H/O splenectomy History of tonsillectomy Hx of cholecystectomy Social History Smoking Status: Former smoker Tobacco Type: Cigarettes Smoking End Date: 1969; Second Hand Exposure: No; Do You Dip or Chew Tobacco: No; Hx Alcohol Use: No Hx Substance Use: No Preferred Language: Qatari Communication Ability: Effective Ict Customer Support Officer Required: No Beliefs That Will Affect Care: None Current Living Situation: [facility] Current Living Situation Comment: [facility] Other Information That Helps Us Care for You: No Feels Safe at Home: Yes Safety Concerns: Feels Safe At This Time Assistive Devices: Glasses, Walker and Wheelchair Physical Exam Psychiatric: Orientation: alert and oriented x 3 Apperance: appropriately dressed and appropriately groomed Eye Contact: good eye contact Motor Behavior: no abnormal motor movements Speech: normal rate/rhythm/volume of speech Affect: euthymic affect Mood: + depressed mood and + anxious mood Thought Process: goal directed thought process Thought Content: reality based without delusions Suicidal Thoughts: denies suicidal thoughts Homicidal Thoughts: denies homicidal thoughts Hallucinations: no auditory hallucinations and no visual hallucinations Cognition: recent memory grossly intact, remote memory grossly intact, attention grossly intact and language grossly intact Estimated Intelligence: consistent with education level Insight: + fair insight Judgement: + fair judgement Vital Signs (Past 24 Hours): Last Vital Signs Temp 36.6 C 01/09/22 07:31 Pulse 71 01/09/22 07:31 Resp 16 01/09/22 07:31 BP 126/79 01/09/22 07:31 Pulse Ox 90 01/09/22 07:31 Review of Systems All systems reviewed & are unremarkable except as noted in HPI & below Results & Data (PSY) Diagnostic Findings EKG QTc 506 ms on 01/08/22 Medications Administered Acetaminophen (Acetaminophen 325 Mg Tab) 650 mg PO Q4H PRN PRN Reason: Pain or Fever Stop: 02/07/22 16:14 Last Admin: 01/08/22 18:46 Dose: 650 mg Documented by: [id number] Alprazolam (Alprazolam 0.5 Mg Tablet) 0.5 mg PO AMHS NOEL Stop: 02/07/22 20:59 Last Admin: 01/09/22 08:31 Dose: 0.5 mg Documented by: [id number] Admin: 01/08/22 21:56 Dose: 0.5 mg Documented by: [id number] Amitriptyline HCl (Amitriptyline Hcl 100 Mg Tab) 100 mg PO HS NOEL Stop: 02/07/22 20:59 Last Admin: 01/08/22 21:29 Dose: 100 mg Documented by: [id number] Atenolol (Atenolol 25 Mg Tablet) 25 mg PO DAILY NOEL Stop: 02/08/22 08:59 Last Admin: 01/09/22 08:26 Dose: 25 mg Documented by: [id number] Bupropion HCl (Bupropion Sr 100 Mg Tabcr) 200 mg PO BID NOEL Stop: 02/07/22 20:59 Last Admin: 01/09/22 08:27 Dose: 200 mg Documented by: [id number] Admin: 01/08/22 21:27 Dose: 200 mg Documented by: [id number] Clopidogrel Bisulfate (Clopidogrel Bisulfate 75 Mg Tab) 75 mg PO DAILY NOEL Stop: 02/08/22 08:59 Last Admin: 01/09/22 08:26 Dose: 75 mg Documented by: [id number] Docusate Sodium (Docusate Sodium 100 Mg Cap) 100 mg PO BID NOEL Stop: 02/07/22 20:59 Last Admin: 01/09/22 08:27 Dose: 100 mg Documented by: [id number] Admin: 01/08/22 21:27 Dose: 100 mg Documented by: [id number] Gemfibrozil (Gemfibrozil 600 Mg Tab) 600 mg PO BID@0800,1600 NOEL Stop: 02/07/22 15:59 Last Admin: 01/09/22 08:26 Dose: 600 mg Documented by: [id number] Admin: 01/08/22 17:52 Dose: 600 mg Documented by: [id number] Heparin Sodium (Porcine) (Heparin Sod 5,000 Unit/0.5 Ml Vial) 5,000 units SQ Q8 NOEL Stop: 02/07/22 21:59 Last Admin: 01/09/22 06:07 Dose: 5,000 units Documented by: [id number] Admin: 01/08/22 22:00 Dose: 5,000 units Documented by: [id number] Insulin Aspart (Insulin Aspart Per Unit) 0 units SC ACHS NOEL Stop: 02/07/22 16:29 Last Admin: 01/09/22 08:24 Dose: 6 units Documented by: [id number] Cosigned by: [id number] Admin: 01/08/22 21:29 Dose: 1 units Documented by: [id number] Cosigned by: [id number] Admin: 01/08/22 18:46 Dose: 6 units Documented by: [id number] Cosigned by: [id number] Losartan Potassium (Losartan Potassium 50 Mg Tab) 100 mg PO DAILY NOEL Stop: 02/08/22 08:59 Last Admin: 01/09/22 08:26 Dose: 100 mg Documented by: [id number] Miscellaneous (Biktarvy- Order Awaiting Action) 1 ea N/A QS NOEL Stop: 02/08/22 00:00 Last Admin: 01/09/22 08:28 Dose: Not Given Documented by: [id number] Admin: 01/08/22 22:01 Dose: Not Given Documented by: [id number] Nitrofurantoin Macrocrystals (Nitrofurantoin Monohydrate 100 Mg Cap) 100 mg PO BID NOEL Stop: 01/18/22 20:59 Last Admin: 01/09/22 08:27 Dose: 100 mg Documented by: [id number] Admin: 01/08/22 21:27 Dose: 100 mg Documented by: [id number] Pantoprazole Sodium (Pantoprazole 40 Mg Tab) 40 mg PO DAILYBB NOEL Stop: 02/08/22 06:29 Last Admin: 01/09/22 06:07 Dose: 40 mg Documented by: [id number] Potassium Chloride (Potassium Chloride Crtab 20 Meq Tabcr) 20 meq PO DAILY NOEL Stop: 02/08/22 08:59 Last Admin: 01/09/22 08:26 Dose: 20 meq Documented by: [id number] Tamsulosin HCl (Tamsulosin Hcl 0.4 Mg Cap) 0.4 mg PO BID NOEL Stop: 02/07/22 20:59 Last Admin: 01/09/22 08:27 Dose: 0.4 mg Documented by: [id number] Admin: 01/08/22 21:27 Dose: 0.4 mg Documented by: [id number] Venlafaxine HCl (Venlafaxine Hcl Xr 150 Mg Capxr) 150 mg PO BID NOEL Stop: 02/07/22 20:59 Last Admin: 01/09/22 08:27 Dose: 150 mg Documented by: [id number] Admin: 01/08/22 21:27 Dose: 150 mg Documented by: [id number] Vitamin D (Cholecalciferol 1,000 Units 25 Mcg Tab) 2,000 units PO DAILY [facility] Stop: 02/08/22 08:59 Last Admin: 01/09/22 08:26 Dose: 2,000 units Documented by: [id number] Ziprasidone (Ziprasidone Hcl 20 Mg Cap) 40 mg PO BID [facility] Stop: 02/07/22 20:59 Last Admin: 01/09/22 08:27 Dose: 40 mg Documented by: [id number] Admin: 01/08/22 21:26 Dose: 40 mg Documented by: [id number] Coding Level of Care Code 72119 Inpt Consult Level 3 Diagnoses Bipolar disorder F31.9 Anxiety and depression F41.9; F32.A
--- NOTE | 2022-01-09 11:13 | XCELERA ---
[id number] [id number]
--- NOTE | 2022-01-09 13:56 | Pharmacy Report ---
Pharmacy Glycemic Short Note 2 - Date of Service January 09, 2022 - Glycemic Short BSG Results (Last 24 hours): 01/08/22 01/08/22 01/09/22 16:42 20:06 06:48 Glucose 119 H POC Glucose 179 H 147 H 01/09/22 01/09/22 07:42 11:48 Glucose POC Glucose 128 H 186 H OUTPATIENT ANTIDIABETIC REGIMEN: * Jardiance 25 mg PO daily * Glimepiride 4 mg PO BIDM * Ozempic 1 mg SC weekly (Fridays) * HbA1c: 7.2% (01/09/22) ASSESSMENT: * WL is a 66 year old male who presents from [facility] due to syncopal episodes * BSG on presentation was 200 mg/dL, given 20 units of basal and 7 units of bolus overnight * Patient with reasonable outpatient glycemic control with orals and GLP1RA * Discussed with hospitalist today, he would like to trial orals while inpatient to monitor for hypoglycemia * Will restart glimepiride BIDM starting with dinner tonight, will remove Novolog carb coverage starting with dinner * Empagliflozin is non-formulary, patient will need to have medication brought in in order to receive it PLAN FOR INPATIENT GLYCEMIC CONTROL: * Glimepiride 4 mg PO BIDM * Basal insulin * Hold * Bolus insulin * NovoLog per scale ACHS or Q6hrs while NPO * Goal Range: Low 120 mg/dL - High 150 mg/dL * Correction Factor: 25 mg/dL/unit * No carb coverage
--- NOTE | 2022-01-09 15:26 | Hospitalist Progress Note ---
Date of Service January 09, 2022 Assessment & Plan (1) Syncope: Plan: Patient was at [facility] for rehab following a fall. Had 4 episodes of loss of consciousness while in the rehab gym. First episode occurred while sitting in a wheelchair doing exercises with speech therapy that required breath-holding, lost consciousness for 30 seconds and was immediately oriented and moving all extremities afterwards. No chest pain or chest pressure. Did have some slight nausea. O2 sat was normal, pulse remained in the 60s and regular. Patient had 3 additional episodes which was witnessed by staff physician and PA. Patient be laying in bed and then would close eyes and drift off for several seconds. At this time EKG showed a sinus rhythm with a rate in the 60s, no ST changes. No pauses or bradycardia during observed loss of consciousness. Patient was referred to the ED for additional evaluation. Syncope - Suspect orthostatic given significant orthostasis today even off his usual HCTZ and torsemide. Will hold losartan and atenolol. - TTE unremarkable Low suspicion for cardiogenic as patient had multiple observed episodes by [facility] provider and PA while connected to an EKG which showed sinus rhythm without pauses or bradycardia - UA concerning for infection (2) Acute hypokalemia: Plan: Repleted, treated as above (3) Lower urinary tract symptoms (LUTS): Plan: Cast in place GNB on culture, continue empiric Rocephin (4) Myopathy: Plan: History, no acute exacerbation, due to chemotherapy (5) Prostate cancer: Plan: Recently treated with radiation, Cast in place per patient No acute exacerbation (6) HIV (human immunodeficiency virus infection): Plan: Undetectable ulcer many years per patient's Continue Biktarvy 1 tab every afternoon (7) Diabetes mellitus type 2 in obese: Plan: Place back on his usual glimepiride, Jardiance to make sure he is not hypoglycemic on these medications BSG ACHS (8) History of ischemic stroke: Plan: Continue Praluent Continue Plavix 75 mg daily Continue gemfibrozil 600 mg p.o. twice daily (9) Afib: Plan: Sinus rhythm at time of assessment Patient reports is on Eliquis, this was not documented in med list on reconciliation Message left with [facility] cardiology group for call back unclear why Eliquis was stopped by time patient was referred to [facility] but by history sounds like may have been concern for strokes with recurrent falls and high bleeding risk. Per patient no history of hemorrhagic conversion of any strokes. At admission patient is in sinus rhythm, will continue with DVT prophylaxis and attempt to obtain further records (10) Anxiety and depression: Plan: In addition to bipolar, patient unsure if type I or type II. Sees Dr. Kathy Saunders Psychiatry. 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 No chest pain or shortness of breath. No acute questions or concerns. Review of Systems Review of Systems: All systems reviewed & are unremarkable except as noted in Subjective Physical Exam Constitutional: WD/WN, vitals as above Respiratory: normal respiratory effort, lungs clear to auscultation Cardiovascular: RRR, no murmur, no edema Gastrointestinal (Abdomen): Inspection/Auscultation: normal bowel sounds Percussion/Palpation: abdomen soft; abdomen nontender Musculoskeletal: no cyanosis or clubbing, extremities motor strength 5/5 Skin: no rashes, warm and dry Neurologic: moves all extremities and awake; not confused Psychiatric: A+Ox3, euthymic affect Genitourinary: no CVA tenderness Results & Data Results & Data ([facility]) Vital Signs (Past 12 Hours) Vital Signs Temp Pulse Pulse Resp BP Pulse Ox 01/09/22 15:24 36.6 C 67 16 98/63 L 92 01/09/22 11:32 36.7 C 67 16 102/65 93 01/09/22 07:31 36.6 C 71 16 126/79 90 01/09/22 06:15 71 01/09/22 03:29 67 16 95 PG Care Time/CCT Total # of Minutes Spent Total Time Spent with Patient: Total time spent is greater than 50% in coordination of care (as documented) at patient's floor/unit and/or counseling patient: Coding Level of Care Code 70567 Subseq Obs Care Lvl 2 Diagnoses Syncope R55 Syncope type: unspecified Acute hypokalemia E87.6 Lower urinary tract symptoms (LUTS) R39.9 Myopathy G72.9 Prostate cancer C61 HIV (human immunodeficiency virus infection) B20 Diabetes mellitus type 2 in obese E11.69; E66.9 History of ischemic stroke Z86.73 Afib I48.91 Anxiety and depression F41.9; F32.A CAD (coronary artery disease) I25.10 Bipolar disorder F31.9 (1) Syncope Syncope type: unspecified Qualified Code(s): R55 - Syncope and collapse
[2022-01-09] MEDS: GLIMEPIRIDE 2 MG TAB PO SCH (17:00)
[2022-01-09] MEDS: ACETAMINOPHEN 325 MG TAB PO PRN (17:05)
[2022-01-09] MEDS: AMITRIPTYLINE HCL 100 MG TAB PO SCH (20:42)
[2022-01-09] MEDS ORDERED: POTASSIUM CHLORIDE CRTAB 20 MEQ TABCR PO STA (21:00)
[2022-01-09] MEDS ORDERED: LORazepam 0.5 MG TAB PO SCH (21:00)
[2022-01-09] MEDS ORDERED: LORazepam 1 MG TAB PO SCH (21:00)
[2022-01-10] MEDS: PANTOprazole 40 MG TAB PO SCH (06:03)
[2022-01-10] MEDS: HEPARIN SOD 5,000 UNIT/0.5 ML VIAL SQ SCH ×2 (06:03→14:39)
[2022-01-10 06:56] LABS: Basophils # (auto) 0.14 K/uL (0-0.2); Basophils % (auto) 1.4 %; Eosinophils # (auto) 0.36 K/uL (0-0.5); Eosinophils % (auto) 3.5 %; Hematocrit (blood only) 39.1 % (42-52); Hemoglobin 12.8 g/dL (14.0-18.0); Immature Granulocytes # (auto) 0.14 K/uL (0.00-0.02); Immature Granulocytes % (auto) 1.4 %; Lymphocytes # (auto) 2.97 K/uL (1.2-3.4); Lymphocytes % (auto) 29.2 %; Mean Corpuscular Hemoglobin 32.9 pg (25-34); Mean Corpuscular Hgb Conc 32.7 g/dL (32-36); Mean Corpuscular Volume 100.5 fL (80-100); Mean Platelet Volume 9.7 fL (7.4-10.4); Monocytes # (auto) 1.58 K/uL (0.11-0.59); Monocytes % (auto) 15.5 %; Neutrophils # (auto) 4.99 K/uL (1.4-6.5); Platelet Count 735 K/uL (130-400); RDW Coefficient of Variation 12.6 % (11.5-14.5); RDW Standard Deviation 46.4 fL (36.4-46.3); Red Blood Count 3.89 M/uL (4.7-6.1); White Blood Count 10.18 K/uL (4.8-10.8)
[2022-01-10 07:18] LABS: BUN Creatinine Ratio 24.1 (10-20); Calcium 9.5 mg/dl (8.5-10.1); Creatinine Clr Calc Pharmacy 126.2 ml/min; Est GFR (Non-African American) 92.3 ml/min; Potassium 3.8 mmol/L (3.5-5.1)
[2022-01-10] MEDS: DOCUSATE SODIUM 100 MG CAP PO SCH (08:39)
[2022-01-10] MEDS: CLOPIDOGREL BISULFATE 75 MG TAB PO SCH (08:39)
[2022-01-10] MEDS: gemfibroziL 600 MG TAB PO SCH ×2 (08:40→16:36)
[2022-01-10] MEDS: GLIMEPIRIDE 2 MG TAB PO SCH ×2 (08:40→16:44)
[2022-01-10] MEDS: CHOLECALCIFEROL 1,000 UNITS 25 MCG TAB PO SCH (08:40)
[2022-01-10] MEDS: TAMSULOSIN HCL 0.4 MG CAP PO SCH (08:40)
[2022-01-10] MEDS: POTASSIUM CHLORIDE CRTAB 20 MEQ TABCR PO SCH (08:41)
[2022-01-10] MEDS: NITROFURANTOIN MONOHYDRATE 100 MG CAP PO SCH (08:41)
[2022-01-10] MEDS: INSULIN ASPART PER UNIT SC SCH ×3 (08:42→16:37)
[2022-01-10] MEDS ORDERED: VENLAFAXINE HCL XR 150 MG CAPXR PO SCH (09:00)
[2022-01-10] MEDS ORDERED: buPROPion SR 100 MG TABCR PO SCH (09:00)
[2022-01-10] MEDS ORDERED: LOSARTAN POTASSIUM 50 MG TAB PO SCH (09:00)
[2022-01-10] MEDS ORDERED: LORazepam 0.5 MG TAB PO SCH (09:00)
--- NOTE | 2022-01-10 09:24 | Psychiatric Progress Note ---
Date of Service January 10, 2022 Impression / Recommendations Impression 66 yo man with history of BPAD, depression, anxiety, prior psychiatric hospitalizations (last December 2020 at [facility]), TIA two months ago, afib, CAD and recent fall/balance issues admitted medically after episodes of LOC while at subacute rehab facility. Psychiatry was consulted for medication recommendations given extensive psychiatric medication regimen. Diagnostically unclear if episodes of unresponsiveness are related to psychiatric medications but given elevated QTc and known risks of benzos in adults over age 65 certainly could be contributing to recent falls and medical issues. Given elevated QTc risks of reducing medications are deemed worth it even though rapid taper can sometimes lead to rebound of depression. Geoffrey agrees with medication adjustments and has good outpatient psych supports should his mood worsen. Will keep geodone as is given importance for mood stabilization. Reducing Effexor and WEllbutrin. Transition and slightly taper Xanax to Ativan (dose equivalent would be 2 mg per day) as longer duration of effect may be more beneficial for anxiety and ideally he can tolerate lower dose and over time goal of taper to discontinuation as an outpatient. Risk of self-harm is low given denial of SI and no current prominent mood symptoms. Chronic risk is moderate given history of prior attempts, hospitalizations and of his spouse last year with some ongoing periods of grief. 01/10/22: Tolerating medication adjustments without any mood changes nor side effects. Recommend repeat EKG to assess QTc prior to return to subacute rehab. (1) Bipolar disorder: (2) Anxiety and depression: -c/w geodone 40mg BID -decrease venlafaxine ER to 150mg qd from BID -decreased Wellbutrin SR to 100mg qd from 200mg BID -discontinued xanax, start ativan 0.5 mg qAM and 1 mg qHS; recommend taper to discontinuation over time as outpatient -c/w elavil 100mg qhs -recommend repeat EKG to assess QTc in 1-3 days and frequent outpatient monitoring to ensure QTc reduces and remains stable (goal of <500) Risk Factors Assessment Do You Have Access To A Gun?: No Interval History Identifying Information 66 yo man with history of BPAD, depression, anxiety, prior psychiatric hospitalizations (last December 2020 at [facility]), TIA two months ago, afib, CAD and recent fall/balance issues admitted medically after episodes of LOC while at subacute rehab facility. Psychiatry was consulted for medication recommendations given extensive psychiatric medication regimen. Chief Complaint "I'm good, Happy Easter". Review of Systems Notes see subjective Subjective Subjective Patient was seen & assessed and interval progress reviewed. Geoffrey reports good mood this morning. Tolerating medication changes and no increase in anxiety with transition to Ativan. Slept "like a baby" last night. Reviewed his decreased appetite since radiation treatment, but he's pleased he has lost some weight. Denied any others concerns or questions. He is hopeful he may be able to return to [facility] today. Physical Exam Psychiatric Orientation: alert and oriented x 3 Apperance: appropriately dressed and appropriately groomed Eye Contact: good eye contact Motor Behavior: no abnormal motor movements Speech: normal rate/rhythm/volume of speech Affect: euthymic affect Mood: no depressed mood and no anxious mood Thought Process: goal directed thought process Thought Content: reality based without delusions Suicidal Thoughts: denies suicidal thoughts Homicidal Thoughts: denies homicidal thoughts Hallucinations: no auditory hallucinations and no visual hallucinations Cognition: recent memory grossly intact, remote memory grossly intact, attention grossly intact and language grossly intact Estimated Intelligence: consistent with education level Insight: + fair insight Judgement: + fair judgement Vital Signs (Past 24 Hours) Last Vital Signs Temp 36.5 C 01/10/22 07:15 Pulse 70 01/10/22 07:15 Resp 19 01/10/22 07:15 BP 132/81 01/10/22 07:15 Pulse Ox 92 01/10/22 07:15 Results & Data ([facility]) Laboratory Results Laboratory Results - last 24 hr 01/09/22 01/09/22 01/09/22 06:48 11:48 16:38 WBC RBC Hgb Hct MCV MCH MCHC RDW Std Deviation RDW Coeff of Laney Plt Count MPV Immature Gran % (Auto) Neut % (Auto) Lymph % (Auto) Coke % (Auto) Eos % (Auto) Baso % (Auto) Neut # (Auto) Lymph # (Auto) Coke # (Auto) Eos # (Auto) Baso # (Auto) Immature Gran # (Auto) Sodium Potassium Chloride Carbon Dioxide Anion Gap BUN Creatinine Est Cr Clr Drug Dosing Est GFR ( Amer) Est GFR (Non-Af Amer) BUN/Creatinine Ratio Glucose POC Glucose 186 H 115 H Estimat Average Glucose 160 Hemoglobin A1c 7.2 H Calcium 01/09/22 01/10/2222 20:08 05:51 05:51 WBC 10.18 RBC 3.89 L Hgb 12.8 L Hct 39.1 L MCV 100.5 H MCH 32.9 MCHC 32.7 RDW Std Deviation 46.4 H RDW Coeff of Laney 12.6 Plt Count 735 H MPV 9.7 Immature Gran % (Auto) 1.4 Neut % (Auto) 49.0 Lymph % (Auto) 29.2 Coke % (Auto) 15.5 Eos % (Auto) 3.5 Baso % (Auto) 1.4 Neut # (Auto) 4.99 Lymph # (Auto) 2.97 Coke # (Auto) 1.58 H Eos # (Auto) 0.36 Baso # (Auto) 0.14 Immature Gran # (Auto) 0.14 H Sodium 137 Potassium 3.8 Chloride 100 Carbon Dioxide 28 Anion Gap 9 BUN 20 Creatinine 0.83 Est Cr Clr Drug Dosing 126.2 Est GFR ( Amer) 107.0 Est GFR (Non-Af Amer) 92.3 BUN/Creatinine Ratio 24.1 H Glucose 81 POC Glucose 132 H Estimat Average Glucose Hemoglobin A1c Calcium 9.5 01/10/22 08:00 WBC RBC Hgb Hct MCV MCH MCHC RDW Std Deviation RDW Coeff of Laney Plt Count MPV Immature Gran % (Auto) Neut % (Auto) Lymph % (Auto) Coke % (Auto) Eos % (Auto) Baso % (Auto) Neut # (Auto) Lymph # (Auto) Coke # (Auto) Eos # (Auto) Baso # (Auto) Immature Gran # (Auto) Sodium Potassium Chloride Carbon Dioxide Anion Gap BUN Creatinine Est Cr Clr Drug Dosing Est GFR ( Amer) Est GFR (Non-Af Amer) BUN/Creatinine Ratio Glucose POC Glucose 123 H Estimat Average Glucose Hemoglobin A1c Calcium Current Inpatient Medications Current Inpatient Medications: Current Inpatient Medications Acetaminophen (Acetaminophen 325 Mg Tab) 650 mg PO Q4H PRN PRN Reason: Pain or Fever Stop: 02/07/22 16:14 Last Admin: 01/09/22 17:05 Dose: 650 mg Documented by: Amitriptyline HCl (Amitriptyline Hcl 100 Mg Tab) 100 mg PO HS [facility] Stop: 02/07/22 20:59 Last Admin: 01/09/22 20:42 Dose: 100 mg Documented by: Bupropion HCl (Bupropion Sr 100 Mg Tabcr) 100 mg PO DAILY NOEL Stop: 02/09/22 08:59 Last Admin: 01/10/22 08:40 Dose: 100 mg Documented by: Clopidogrel Bisulfate (Clopidogrel Bisulfate 75 Mg Tab) 75 mg PO DAILY NOEL Stop: 02/08/22 08:59 Last Admin: 01/10/22 08:39 Dose: 75 mg Documented by: Dextrose (Dextrose 50% 50 Ml Syringe) 25 - 50 ml IV UD PRN; Protocol PRN Reason: Hypoglycemia Protocol Stop: 02/07/22 16:14 Docusate Sodium (Docusate Sodium 100 Mg Cap) 100 mg PO BID NOEL Stop: 02/07/22 20:59 Last Admin: 01/10/22 08:39 Dose: 100 mg Documented by: Gemfibrozil (Gemfibrozil 600 Mg Tab) 600 mg PO BID@0800,1600 NOEL Stop: 02/07/22 15:59 Last Admin: 01/10/22 08:40 Dose: 600 mg Documented by: Glimepiride (Glimepiride 2 Mg Tab) 4 mg PO BIDM [facility] Stop: 02/08/22 16:59 Last Admin: 01/10/22 08:40 Dose: 4 mg Documented by: Glucagon (Glucagon For Inj 1 Mg Vial) 1 mg SQ UD PRN; Protocol PRN Reason: Hypoglycemia Protocol Stop: 02/07/22 16:14 Glucose (Glucose 10 Tabs/Tube) 4 - 8 tabs PO UD PRN; Protocol PRN Reason: Hypoglycemia Protocol Stop: 02/07/22 16:14 Glucose (Glucose 40% Gel 15 Gm Tube) 15 - 30 gm PO UD PRN; Protocol PRN Reason: Hypoglycemia Protocol Stop: 02/07/22 16:14 Heparin Sodium (Porcine) (Heparin Sod 5,000 Unit/0.5 Ml Vial) 5,000 units SQ Q8 NOEL Stop: 02/07/22 21:59 Last Admin: 01/10/22 06:03 Dose: 5,000 units Documented by: Insulin Aspart (Insulin Aspart Per Unit) 0 units SC ACHS [facility] Stop: 02/08/22 16:29 Last Admin: 01/10/22 08:42 Dose: Not Given Documented by: Lorazepam (Lorazepam 1 Mg Tab) 1 mg PO HS [facility] Stop: 02/08/22 20:59 Last Admin: 01/09/22 20:53 Dose: 1 mg Documented by: Lorazepam (Lorazepam 0.5 Mg Tab) 0.5 mg PO DAILY NOEL Stop: 02/09/22 08:59 Last Admin: 01/10/22 08:46 Dose: 0.5 mg Documented by: Miscellaneous (Carbohydrates For Hypoglycemia ) 15 - 30 gm PO UD PRN PRN Reason: Hypoglycemia Protocol Stop: 02/07/22 16:14 Miscellaneous (Biktarvy- Order Awaiting Action) 1 ea N/A QS NOEL Stop: 02/08/22 00:00 Last Admin: 01/10/22 08:41 Dose: Not Given Documented by: Miscellaneous (Jardiance: Order Awaiting Action) 1 ea N/A QS [facility] Stop: 02/08/22 15:59 Last Admin: 01/10/22 08:41 Dose: Not Given Documented by: Miscellaneous Information (Pharmacy Glycemic Mgmt Consult) 1 ea N/A UD PRN; Protocol PRN Reason: Consult Stop: 02/07/22 16:14 Nitrofurantoin Macrocrystals (Nitrofurantoin Monohydrate 100 Mg Cap) 100 mg PO BID NOEL Stop: 01/18/22 20:59 Last Admin: 01/10/22 08:41 Dose: 100 mg Documented by: Ondansetron HCl (Ondansetron Inj 2 Mg/Ml 2 Ml Vial) 4 mg IV Q6H PRN PRN Reason: Nausea Stop: 02/07/22 16:14 Pantoprazole Sodium (Pantoprazole 40 Mg Tab) 40 mg PO DAILYBB [facility] Stop: 02/08/22 06:29 Last Admin: 01/10/22 06:03 Dose: 40 mg Documented by: Polyethylene Glycol (Polyethylene (Miralax) 17 Gm Pack) 17 gm PO QDL PRN PRN Reason: Constipation Stop: 02/07/22 16:14 Potassium Chloride (Potassium Chloride Crtab 20 Meq Tabcr) 20 meq PO DAILY NOEL Stop: 02/08/22 08:59 Last Admin: 01/10/22 08:41 Dose: 20 meq Documented by: Sodium Biphosphate/Sodium Phosphate (Sod Phosphate/Sod Biphosphate Enema 132 Ml Btl) 118 ml NC DAILY PRN PRN Reason: Constipation Stop: 02/07/22 16:14 Tamsulosin HCl (Tamsulosin Hcl 0.4 Mg Cap) 0.4 mg PO BID NOEL Stop: 02/07/22 20:59 Last Admin: 01/10/22 08:40 Dose: 0.4 mg Documented by: Venlafaxine HCl (Venlafaxine Hcl Xr 150 Mg Capxr) 150 mg PO QAM NOEL Stop: 02/09/22 08:59 Last Admin: 01/10/22 08:41 Dose: 150 mg Documented by: Vitamin D (Cholecalciferol 1,000 Units 25 Mcg Tab) 2,000 units PO DAILY NOEL Stop: 02/08/22 08:59 Last Admin: 01/10/22 08:40 Dose: 2,000 units Documented by: Ziprasidone (Ziprasidone Hcl 20 Mg Cap) 40 mg PO BID NOEL Stop: 02/07/22 20:59 Last Admin: 01/10/22 08:39 Dose: 40 mg Documented by:
[2022-01-10] MEDS ORDERED: cefTRIAXone SODIUM 2,000 MG in DEXTROSE 5% 50 ML IV SCH (10:00)
--- NOTE | 2022-01-10 10:36 | XRay Report ---
XR chest 1V portable HISTORY: 66 years-old Male syncope acute syncope COMPARISON: None TECHNIQUE: Portable AP view of the chest FINDINGS: Cardiac silhouette is upper limits of normal in size. Mild nonspecific interstitial coarsening. There is no pneumothorax, pleural effusion, airspace consolidation or overt pulmonary edema. Bones appear grossly intact. Surgical clips project over the right axilla. IMPRESSION: Mild nonspecific interstitial coarsening. ACT 112: Negative or not required by law. The above report was generated using voice recognition software. It may contain grammatical, syntax o r spelling errors. Electronically signed by: Tony Mendieta M.D. 01/10/2022 10:33 AM
--- NOTE | 2022-01-10 12:42 | Electrocardiogram Report ---
Test Reason : Blood Pressure : / mmHG Vent. Rate : 070 BPM Atrial Rate : 070 BPM P-R Int : 246 ms QRS Dur : 088 ms QT Int : 436 ms P-R-T Axes : 055 003 044 degrees QTc Int : 470 ms Sinus rhythm with sinus arrhythmia with 1st degree A-V block Otherwise normal ECG When compared with ECG of 08-JAN-2022 12:02, T wave inversion no longer evident in Anterior leads Confirmed by Andres Rios ([id number]) on 01/10/2022 12:41:25 PM Referred By: REFERRED SELF Confirmed By:Max Rios
--- NOTE | 2022-01-10 14:35 | Discharge Summary ---
Date of Service January 10, 2022 Admission HPI Per Admitting Provider Darrin is a 66-year-old male hx Afib, DM, stroke who presents from [facility] rehab with recurrent syncopal episodes. Per Provider Record Review: Patient was at [facility] for rehab following a fall. Had 4 episodes of loss of consciousness while in the rehab gym. First episode occurred while sitting in a wheelchair doing exercises with speech therapy that required breath-holding, lost consciousness for 30 seconds and was immediately oriented and moving all extremities afterwards. No chest pain or chest pressure. Did have some slight nausea. O2 sat was normal, pulse remained in the 60s and regular. Patient had 3 additional episodes which was witnessed by staff physician and PA. Patient be laying in bed and then would close eyes and drift off for several seconds. At this time EKG showed a sinus rhythm with a rate in the 60s, no ST changes. No pauses or bradycardia during observed loss of consciousness. Patient was referred to the ED for additional evaluation. Per Pt: Got to [facility] this past (2 days ago). Was doing speech therapy and passed out. "It's normal, I've been passing out since I first got sick in 1995". Reports he is usually at home sitting in his chair and wakes up. He does not know when he is going to pass out, no prodome, no lightheadedness/dizziness. When he wakes up he notes he feels confused for a few minutes. Lately his R side is weaker than the left. Had a TIA 2 months ago, had a 'full stroke' in 2012/2013. Was at [facility] after a fall. Reports very poor balance and fell down his stairs at home and was seen after a fall and recommended for rehab at [facility]. No strokes in the last 2 month sot his knowledge. Baseline R arm and Leg weakness, some speech dysarthria at baseline. Poor balance/gait at baseline, has had more falls and feel this is due to balance. No spinning/vertigo, but 'just can't get steady.' Reports a seizure 'a long time ago at the start of my weakness, we don't know if it was related to a stroke. Neurologist thought it was a stroke, regular doctor thought it was a seizure.' No seizure meds, no recent seizures. No vision change, but has had 2 cataracts removed with improvement in the past. No chest pain. Endorses rare chest pressure, none this week Endorses some intermittent shortness of breath with exertion improved with BiPAP at night which he started ey. No SoB at time of assessment. Stress test of his heart [address] Dena Smallwood at [facility] --> was not recommended for cath at that time Afib, diagnosed5 months ago. Takes eliquis. Plavix. Thinks he has gotten heparin shots in the belly before. Meds: Jardiance, gliperide, olempic weekly insulin (last took today), flomax, vitamin D, Harjovy HIV. Had since 1995, undetectable. Demedex, multivitamin. Atenolol. Medical History: Reviewed Medications: Reviewed Surgical History: Reviewed Allergies: Reviewed Social History: Denies current tobacco, etoh, substance use. Former cigarette use Code Status: Full Principal Diagnosis Catheter associated UTI Orthostatic hypotension Discharge Exam Constitutional WD/WN, vitals as above Respiratory normal respiratory effort, lungs clear to auscultation Cardiovascular RRR, no murmur, no edema Gastrointestinal (Abdomen) Inspection/Auscultation: normal bowel sounds Percussion/Palpation: abdomen soft; abdomen nontender Musculoskeletal no cyanosis or clubbing, extremities motor strength 5/5 Skin no rashes, warm and dry Neurologic moves all extremities and awake; not confused Psychiatric A+Ox3, euthymic affect Genitourinary no CVA tenderness Discharge Data Allergies Allergy/AdvReac Type Severity Reaction Status Date / Time clonazepam [From Klonopin] Allergy Unknown ON Verified 01/08/22 12:37 [facility] Fish Containing Products Allergy Unknown ON Verified 01/08/22 12:37 [facility] mirtazapine [From Remeron] Allergy Unknown ON Verified 01/08/22 12:37 [facility] Penicillins Allergy Unknown ON Verified 01/08/22 12:37 [facility] Sulfa (Sulfonamide Allergy Unknown ON Verified 01/08/22 12:37 Antibiotics) [facility] Consultations 01/08/22 12:20 ED Decision to Admit Stat 01/08/22 13:31 Consult Psychiatry Routine Ordered Studies 01/08/22 11:23 CT head/brain wo con Stat 01/08/22 14:10 US venous doppler LE RT Urgent 01/08/22 16:15 US carotid doppler BI Urgent Hospital Course (1) Syncope: Darrin Pastrana is a 66 year old male observed at [facility] from January 08-2021 due to multiple syncopal episodes. He was diagnosed with a catheter associated urinary tract infection and treated with intravenous ceftriaxone. On discussion with physician at [facility] recommend continuing ceftriaxone on discharge and US guided line was placed to enable this. He was significantly orthostatic off his prescribed torsemide and hydrochlorothiazide therefore his other anti-hypertensives were also discontinued. These may be restarted as needed for hypertension as he improves from the infection. Due to prolonged QT his psychiatric medications have been adjusted by psychiatry. Xanax was switched to lorazepam with goal to taper over time. Venlafaxine ER decreased from 150mg PO BID to daily. Wellbutrin SR decreased from 200mg BID to 100mg daily. He should follow up with his outpatient psychiatrist on discharge. There is also some confusion regarding whether he should be taking Eliquis for atrial fibrillation and recommend confirming with his sash sticker whether he should still be taking this. (2) Acute hypokalemia: (3) Lower urinary tract symptoms (LUTS): (4) Myopathy: (5) Prostate cancer: (6) HIV (human immunodeficiency virus infection): (7) Diabetes mellitus type 2 in obese: (8) History of ischemic stroke: (9) Afib: (10) Anxiety and depression: (11) CAD (coronary artery disease): (12) Bipolar disorder: Total Time Total Time Spent Total Time Spent (In Minutes): 35 Discharge Plan Discharge Items Patient Disposition: Home - Self-Care Reason For Visit: SYNCOPE Discharge Diagnosis: Catheter associated UTI Orthostatic hypotension Activity: Resume your previous activity Non-emergency contact: Primary Care Provider Call non-emergency contact if: you have any medication questions and your symptoms worsen Follow-up/Referrals: Lizbeth Barksdale DO [Primary Care Provider] - Diet: Carb Consistent or DM2 and Heart Healthy Diet Texture: Mechanical soft (ground) Addtl Attending Provider Instructions: You were observed at [facility] from January 08-2021 due to multiple syncopal episodes. You were diagnosed with a catheter associated urinary tract infection and treated with intravenous ceftriaxone. On discussion with physician at [facility] recommend continuing ceftriaxone on discharge You were also significantly orthostatic off your prescribed torsemide and hydrochlorothiazide therefore your other anti-hypertensives were also discontinued. These may be restarted as needed for hypertension as you improve from the infection. Due to prolonged QT your psychiatric medications have been adjusted by psychiatry. Xanax was switched to lorazepam with goal to taper over time. Venlafaxine ER decreased from 150mg PO BID to daily. Wellbutrin SR decreased from 200mg BID to 100mg daily. Please follow up with your outpatient psychiatrist for ongoing management of this. There is also some confusion regarding whether you should be taking Eliquis and recommend confirming with your sash sticker whether you should still be taking this. Pending Studies at Discharge: No Stand-Alone Forms: My [facility] Local [employer], Smoking Cessation Medications and DC Order Prescriptions: New ceftriaxone 2 gram recon soln 2 g IV DAILY 6 Days Qty: 6 RF: 0 Continued acetaminophen [Tylenol] 325 mg Tablet 650 mg PO Q4H PRN (Reason: Pain (Scale Score 1-3)) RF: 0 ondansetron HCl 4 mg Tablet 4 mg PO Q6H PRN (Reason: NAUSEA/VOMITING) RF: 0 sennosides-docusate sodium [Senokot-S] 8.6-50 mg Tablet 1 tab-cap PO QDL PRN (Reason: Constipation) RF: 0 venlafaxine [Effexor XR] 150 mg Capsule,Extended Release 24hr 150 mg PO DAILY RF: 0 heparin (bovine) 5,000 unit/mL Solution 5,000 unit Q8H RF: 0 clopidogrel [Plavix] 75 mg Tablet 75 mg PO DAILY RF: 0 ziprasidone HCl 20 mg Capsule 40 mg PO BID RF: 0 amitriptyline 25 mg Tablet 100 mg PO HS RF: 0 magnesium hydroxide [Milk of Magnesia] 400 mg/5 mL Suspension 30 ml PO DAILY PRN (Reason: Constipation) RF: 0 tamsulosin 0.4 mg Capsule 0.4 mg PO BID RF: 0 gemfibrozil 600 mg Tablet 600 mg PO BID RF: 0 bisacodyl 10 mg Suppository 10 mg WA DAILY PRN (Reason: Constipation) RF: 0 pantoprazole 40 mg Tablet,Delayed Release (Dr/Ec) 40 mg PO DAILYBB RF: 0 Humulin R Regular U-100 Insuln 100 unit/mL Solution 1 sliding scale dose SUBCUT ACHS RF: 0 glimepiride 4 mg Tablet 4 mg PO BIDM RF: 0 Fleet Enema 19-7 gram/118 mL Enema 118 ml WA DAILY PRN (Reason: Constipation) RF: 0 nitroglycerin [Nitrostat] 0.4 mg Tablet, Sublingual 0.4 mg sublingual DIRECTED PRN (Reason: Chest Pain) RF: 0 docusate sodium 100 mg Capsule 100 mg PO BID RF: 0 multivitamin with minerals Tablet 1 tab PO DAILY RF: 0 polyethylene glycol 3350 [Miralax] 17 gram/dose Powder 17 g PO QDL PRN (Reason: Constipation) RF: 0 bupropion HCl 200 mg Tablet Sustained-Release 12 Hr 100 mg PO DAILY RF: 0 cholecalciferol (vitamin D3) [Vitamin D3] 50 mcg (2,000 unit) Capsule 50 mcg PO DAILY RF: 0 potassium chloride 20 mEq Tablet Extended Release 20 meq PO DAILY RF: 0 geigz-p-zghzsbduuafbm 150 unit Tablet 150 unit PO HS RF: 0 Jardiance 25 mg Tablet 25 mg PO DAILY RF: 0 Praluent Pen 150 mg/mL Pen Injector 150 mg SUBCUT .Q2WK RF: 0 Biktarvy 50-200-25 mg Tablet 1 tab PO QPM RF: 0 Ozempic 1 mg/dose (4 mg/3 mL) Pen Injector 1 mg SUBCUT WK RF: 0 lorazepam [Ativan] 0.5 mg Tablet 0.5 mg PO QAM RF: 0 lorazepam [Ativan] 1 mg Tablet 1 mg PO HS RF: 0 Discontinued torsemide 20 mg Tablet 20 mg PO DAILY RF: 0 atenolol 25 mg Tablet 25 mg PO DAILY RF: 0 hydrochlorothiazide 25 mg Tablet 25 mg PO DAILY RF: 0 losartan 100 mg Tablet 100 mg PO DAILY RF: 0 nitrofurantoin monohyd/m-cryst [Macrobid] 100 mg Capsule 100 mg PO BID RF: 0 Discharge Orders: Discharge Order (Routine); Ordered 01/10/22 Ordered By: Ino Jaffe/Other Patient Handouts: Managing Type 2 Diabetes Admission Data Admit Date/Time: 01/08/22 12:58 Attending Provider: Ino Gifford Admit Provider: Garcia Pettit Primary Care Provider: Lizbeth Barksdale Other Providers: Garcia Pettit ; Kate Bush ; Eloisa Greenwood ; Christi Gannon ; [facility] Other Interventions: Discharge Summary Assessment (RN) Last Done: 01/10/22 14:45 Coding Level of Care Code 60398 OBS Care - Discharge Diagnoses Syncope R55 Syncope type: unspecified Acute hypokalemia E87.6 Lower urinary tract symptoms (LUTS) R39.9 Myopathy G72.9 Prostate cancer C61 HIV (human immunodeficiency virus infection) B20 Diabetes mellitus type 2 in obese E11.69; E66.9 History of ischemic stroke Z86.73 Afib I48.91 Anxiety and depression F41.9; F32.A CAD (coronary artery disease) I25.10 Bipolar disorder F31.9
== END 2022-01-10 17:33 | disposition home or self-care (01) ==
LOC: 2N 11:10 → ED 11:10 → SUATTDRO 12:58 → 2N 15:07